=== PATIENT | female | born 1945 | race Caucasian/White ===

== ENCOUNTER 2017-11-08 07:50 | Emergency (ER) | payer OTHER ==
[~2017-11-08] VITALS: Ht 157.5 cm; Wt 52.4 kg
[~2017-11-08 07:50] MED LIST: BIOTIN PO; CITRACAL W/V1 TABLE1 PO; CLARINEX5 MG PO; CRANBERRY500 M2 PO; EXCEDRIN EXTRA1 EACH PO; FEMARA2.5 MG PO; FLEXERIL10 MG PO; FOSAMAX70 MG PO; PERCOCET 5/31 TABLET PO; TOPAMAX50 MG PO; TRAZODONE HCL50 MG PO; VICODIN ES 7.51 EAC1 PO; VITAMIN B12-FO1 EACH PO; VITAMIN C1000 MG PO
[2017-11-08 08:51] LABS: BASOPHIL (%) 0.5 % (0-1); BASOPHIL COUNT 0.1 K/uL (0-0.1); EOSINOPHIL (%) 1.4 % (0-5); EOSINOPHIL COUNT 0.1 K/uL (0-0.3); HEMATOCRIT 43.8 % (36.0-46.0); HEMOGLOBIN 14.9 G/DL (11.9-15.5); IMMATURE GRANULOCYTE (%) 0.2 % (0.0-0.7); LYMPHOCYTE (%) 30.7 % (15-42); LYMPHOCYTE COUNT 2.9 K/uL (1.0-2.8); MCH 31.8 PG (29.0-34.0); MCV 93.4 FL (83-99); MONOCYTE (%) 5.8 % (3-12); MONOCYTE COUNT 0.6 K/uL (0-0.8); NEUTROPHIL (%) 61.4 % (45-76); NEUTROPHIL COUNT 5.9 K/uL (1.8-6.4); PLATELET COUNT 286 K/uL (156-360); RBC DIS.WIDTH-CV 14.2 % (11.8-14.6); RBC DIS.WIDTH-SD 48.3 % (39-53); RED BLOOD COUNT 4.69 M/uL (3.80-5.20); WHITE BLOOD COUNT 9.5 K/uL (4.1-10.2)
[2017-11-08 09:01] LABS: ALBUMIN 4.4 g/dL (3.2-4.8); CHLORIDE 107 mEq/L (99-109); POTASSIUM 3.3 mEq/L (3.7-5.4); SODIUM 144 mEq/L (136-147)
[2017-11-08 09:03] LABS: GLUCOSE 111 mg/dL (70-99)
[2017-11-08 09:04] LABS: TOTAL PROTEIN 7.4 g/dL (6.4-8.3)
[2017-11-08 09:05] LABS: TOTAL BILIRUBIN 0.6 mg/dL (0.0-1.0)
[2017-11-08 09:07] LABS: ALKALINE PHOSPHATASE 82 IU/L (3-129); CREATININE 0.9 mg/dL (0.6-1.3); GFR ESTIMATE (CALCULATED) > 59 mL/min/
[2017-11-08 09:08] LABS: UREA NITROGEN (BUN) 13 mg/dL (9-23)
[2017-11-08 09:09] LABS: AST (GOT) 22 IU/L (2-34)
[2017-11-08 09:10] LABS: ALT (GPT) 24 IU/L (3-49)
[2017-11-08 10:45] LABS: APPEARANCE CLEAR ((CLEAR)); BILIRUBIN NEGATIVE; BLOOD MODERATE; COLOR YELLOW ((YELLOW)); GLUCOSE (STRIP) NEGATIVE; KETONES 5; LEUKOCYTES NEGATIVE; NITRITE NEGATIVE; PROTEIN (STRIP) NEGATIVE; SPECIFIC GRAVITY 1.013 (1.000-1.030); UROBILINOGEN 0.2 MG/DL (0.2-1.0)
[2017-11-08 10:54] LABS: BACTERIA RARE /HPF; EPITHELIAL CELLS NONE SEEN /HPF; HYALINE CASTS 0-5 /LPF; MUCUS 1+ /LPF; RED BLOOD CELLS 0-5 /HPF (0-5); UCUL ADDED? YES
[2017-11-08] MEDS ORDERED: FLAGYL500 MG PO (13:07)
[2017-11-08] MEDS ORDERED: ZOFRAN ODT4 MG PO (13:07)
[2017-11-08] MEDS ORDERED: CIPRO500 MG PO (13:07)
[2017-11-08 13:20] VITALS: BP 130/84
== END 2017-11-08 13:30 | disposition home or self-care (01) ==
LOC: EME 07:50
PROVIDERS: Nurse Practitioner Family
DX: K92.1 Melena (principal); K57.32 Diverticulitis of large intestine without perforation or abscess without bleeding; K64.8 Other hemorrhoids; K64.4 Residual hemorrhoidal skin tags; N39.0 Urinary tract infection, site not specified; R51 Headache; R16.0 Hepatomegaly, not elsewhere classified; Z85.3 Personal history of malignant neoplasm of breast; Z90.10 Acquired absence of unspecified breast and nipple; Z80.0 Family history of malignant neoplasm of digestive organs; Z88.1 Allergy status to other antibiotic agents
CPT/HCPCS: 74176; 80053; 81003; 85025; 87086; 93005; 99281; 99284